=== PATIENT | female | born 1980 | race Caucasian/White ===

== ENCOUNTER → 2022-03-05 19:15 | Observation (INO) ==
[2022-03-05 18:16] LABS: Basophils % 0.4 %; Eosinophils # 0.2 K/mcL (0.0-0.6); Eosinophils % 1.9 %; Hematocrit 33.3 % (35.3-44.9); Hemoglobin 11.1 g/dL (11.5-15.4); Immature Granulocytes % 0.5 % (0-4); Lymphocytes # 1.5 K/mcL (0.6-4.6); Lymphocytes % 17.7 %; Mean Corpuscular HGB Conc 33.3 g/dL (31.6-35.5); Mean Corpuscular Hemoglobin 29.1 pg (28.0-33.3); Mean Corpuscular Volume 87.4 fL (83.0-100.0); Mean Platelet Volume 10.4 fL (9.4-12.4); Monocytes # 0.4 K/mcL (0.0-1.3); Monocytes % 4.5 %; Neutrophils # 6.2 K/mcL (1.6-8.9); Platelet Count 208 K/mcL (140-400); Red Blood Count 3.81 M/mcL (3.82-4.97); Red Cell Distribution Width 13.7 % (11.5-14.5); White Blood Count 8.3 K/mcL (4.3-11.1)
[2022-03-05 18:24] LABS: Protein/Creatinine Ratio,Urine 0.19 mg/mg (0.00-0.20)
[2022-03-05 18:29] LABS: Alanine Aminotransferase 8 Units/L (7-52); Aspartate Amino Transferase 13 Units/L (13-39); BUN/Creatinine Ratio 13 (6-26); Blood Urea Nitrogen 8 mg/dL (6-20); Lactate Dehydrogenase 132 Units/L (140-271); eGFR For African Americans > 60 (> 60); eGFR For Non-African Americans > 60 (> 60)
== END | disposition home or self-care (01) ==
LOC: 1NENULAB
PROVIDERS: ADMIT Student in an Organized Health Care Education/Training Program; ATTEND Student in an Organized Health Care Education/Training Program

== ENCOUNTER 2022-04-07 06:02 | Inpatient (IN) ==
[2022-04-07] MEDS ORDERED: Metoclopramide 10 MG/2 ML VIAL IVP ONE (06:45)
[2022-04-07] MEDS ORDERED: Ringers Solution, Lactated 1,000 ML IVC ONE (06:45)
[2022-04-07] MEDS ORDERED: Famotidine 20 MG/2 ML VIAL IVP ONE (06:45)
[2022-04-07] MEDS ORDERED: CeFAZolin 2,000 MG/120 ML BAG IVPB ONE (06:45)
[2022-04-07 07:09] LABS: Basophils % 0.4 %; Eosinophils # 0.1 K/mcL (0.0-0.6); Eosinophils % 1.2 %; Hematocrit 34.8 % (35.3-44.9); Hemoglobin 11.8 g/dL (11.5-15.4); Immature Granulocytes % 0.6 % (0-4); Lymphocytes # 1.7 K/mcL (0.6-4.6); Lymphocytes % 20.2 %; Mean Corpuscular HGB Conc 33.9 g/dL (31.6-35.5); Mean Corpuscular Hemoglobin 29.6 pg (28.0-33.3); Mean Corpuscular Volume 87.2 fL (83.0-100.0); Mean Platelet Volume 10.5 fL (9.4-12.4); Monocytes # 0.4 K/mcL (0.0-1.3); Monocytes % 4.6 %; Neutrophils # 6.1 K/mcL (1.6-8.9); Platelet Count 226 K/mcL (140-400); Red Blood Count 3.99 M/mcL (3.82-4.97); Red Cell Distribution Width 13.8 % (11.5-14.5); White Blood Count 8.4 K/mcL (4.3-11.1)
[2022-04-07] MEDS ORDERED: Oxytocin 30 UNIT/503 ML BAG IVC ONE (07:59)
[2022-04-07] MEDS ORDERED: Ringers Solution, Lactated 1,000 ML ONE ×3 (08:08→14:57)
[2022-04-07] MEDS ORDERED: *HR* FentaNYL (PF) 100 MCG/2 ML VIAL ONE (08:12)
[2022-04-07] MEDS ORDERED: *HR* Morphine Sulfate/PF 10 MG/10 ML AMPUL ONE (08:12)
[2022-04-07] MEDS ORDERED: Ondansetron 4 MG/2 ML VIAL ONE (08:19)
[2022-04-07] MEDS ORDERED: Acetaminophen IV 1,000 MG/100 ML BAG IVPB ONE (08:20)
[2022-04-07] MEDS ORDERED: Ketorolac 30 MG/ML VIAL ONE (09:26)
[2022-04-07 09:48] LABS: Amphetamine Screen,Urine Negative ng/mL (Cutoff=1000); Barbiturate Screen,Urine Negative ng/mL (Cutoff=200); Benzodiazepines Screen,Urine Negative ng/mL (Cutoff=200); Cannabinoid Screen,Urine Negative ng/mL (Cutoff = 50); Cocaine Screen,Urine Negative ng/mL (Cutoff= 300); Opiate Screen,Urine Negative ng/mL (Cutoff=300); Phencyclidine Screen,Urine Negative ng/mL (Cutoff=25)
[2022-04-07] MEDS ORDERED: Simethicone 80 MG TAB.CHEW PO PRN (12:06)
[2022-04-07] MEDS ORDERED: Metoclopramide 10 MG/2 ML VIAL IVP PRN (12:06)
[2022-04-07] MEDS ORDERED: Ondansetron 4 MG/2 ML VIAL IVP PRN (12:06)
[2022-04-07] MEDS ORDERED: *HR* OxyCODONE Immed Rel 5 MG TABLET PO PRN (12:06)
[2022-04-07] MEDS: Acetaminophen 325 MG TABLET PO SCH ×2 (13:18→20:06)
[2022-04-07] MEDS: Ibuprofen 600 MG TABLET PO SCH ×2 (13:18→20:06)
[2022-04-07] MEDS: metroNIDAZOLE 500 MG TABLET PO SCH (17:58)
[2022-04-07] MEDS: CeFAZolin 2,000 MG/120 ML BAG IVPB SCH (17:58)
[2022-04-08] MEDS: metroNIDAZOLE 500 MG TABLET PO SCH ×4 (00:07→20:49)
[2022-04-08] MEDS: CeFAZolin 2,000 MG/120 ML BAG IVPB SCH (00:07)
[2022-04-08] MEDS: Ibuprofen 600 MG TABLET PO SCH ×4 (02:30→22:27)
[2022-04-08] MEDS: Acetaminophen 325 MG TABLET PO SCH ×4 (02:30→22:27)
[2022-04-08 06:02] LABS: Basophils % 0.4 %; Eosinophils # 0.1 K/mcL (0.0-0.6); Eosinophils % 1.7 %; Hematocrit 26.9 % (35.3-44.9); Hemoglobin 9.2 g/dL (11.5-15.4); Immature Granulocytes % 0.4 % (0-4); Lymphocytes # 1.4 K/mcL (0.6-4.6); Lymphocytes % 17.5 %; Mean Corpuscular HGB Conc 34.2 g/dL (31.6-35.5); Mean Corpuscular Volume 87.6 fL (83.0-100.0); Mean Platelet Volume 10.4 fL (9.4-12.4); Monocytes # 0.4 K/mcL (0.0-1.3); Monocytes % 4.6 %; Neutrophils # 5.9 K/mcL (1.6-8.9); Platelet Count 171 K/mcL (140-400); Red Blood Count 3.07 M/mcL (3.82-4.97); Red Cell Distribution Width 13.8 % (11.5-14.5); Segmented Neutrophils % 75.4 %; White Blood Count 7.9 K/mcL (4.3-11.1)
[2022-04-08] MEDS ORDERED: NON-FORMULARY MEDICATION 1 EACH EACH (Prenatal Vitamin Tablet 1 TAB) PO SCH (09:00)
[2022-04-08] MEDS ORDERED: PEPCID PO SCH (09:00)
[2022-04-08] MEDS: Prenatal Vit/FA 1 EACH TABLET PO SCH (09:28)
[2022-04-08 19:23] VITALS: TEMP 98.1
[2022-04-08] MEDS: *HR* Enoxaparin 60 MG/0.6 ML SYRINGE SQ SCH ×2 (20:33→20:49)
[2022-04-09] MEDS: Acetaminophen 325 MG TABLET PO SCH ×2 (01:38→08:35)
[2022-04-09] MEDS: Ibuprofen 600 MG TABLET PO SCH (08:35)
[2022-04-09] MEDS: metroNIDAZOLE 500 MG TABLET PO SCH (08:35)
[2022-04-09] MEDS: *HR* Enoxaparin 60 MG/0.6 ML SYRINGE SQ SCH (08:35)
[2022-04-09] MEDS: Prenatal Vit/FA 1 EACH TABLET PO SCH (08:35)
[2022-04-09 09:45] VITALS: BP 124/79; PULSE 87; O2SAT 96
[2022-04-09] MEDS ORDERED: Ondansetron ODT 4 MG TAB.RAPDIS SL PRN (10:15)
== END 2022-04-09 14:00 | disposition home or self-care (01) | DRG 787 ==
LOC: 1NENULAB 06:02 → 1NENUOBS 11:59
PROVIDERS: ADMIT Obstetrics & Gynecology; ATTEND Obstetrics & Gynecology